=== PATIENT | female | born 1975 | race Caucasian/White ===

== ENCOUNTER 2020-05-03 16:22 | Outpatient (CLI) | payer OTHER, SELFPAY ==
--- NOTE | ~2020-05-03 | MM_ITS ---
EXAMINATION: MM screening [facility] BI w navneet HISTORY: Screening mammogram TECHNIQUE: Craniocaudal and mediolateral oblique 3-D tomosynthesis images were obtained and synthetic 2-D images were generated. CAD analysis was submitted and interpreted. COMPARISON: 04/18/2019, 04/15/2018, 04/13/2017 BREAST PARENCHYMAL COMPOSITION: The breasts are heterogeneously dense, which may obscure small masses . FINDINGS: There is no evidence of suspicious mass, calcification, or architectural distortion to sugg est malignancy in either breast. There has been no suspicious interval change. IMPRESSION: 1. No mammographic evidence of malignancy. 2. Recommend routine screening mammography in one year. BI-RADS Category 1: Negative Reviewed, dictated and finalized at location A.
== END 2020-05-03 16:23 | disposition home or self-care (01) ==
LOC: ANHIMG 16:25
PROVIDERS: PCP Family Medicine; Visit Provider Obstetrics & Gynecology
DX: Z12.31 Encounter for screening mammogram for malignant neoplasm of breast (principal)
CPT/HCPCS: 77063; 77067

== ENCOUNTER → 2020-09-12 16:30 | Outpatient (CLI) | payer OTHER, SELFPAY ==
--- NOTE | ~2020-09-12 | MR_ITS ---
EXAMINATION: MR knee RT wo con DATE: 09/12/2020 17:35 INDICATION: Right knee pain. TECHNIQUE: Magnetic resonance imaging (MRI) of the right knee was performed without intravenous contr ast. Sequences included axial PD-weighted FS FSE, coronal PD-weighted FSE and PD-weighted FS FSE, sag ittal PD-weighted FSE, and sagittal T2-weighted FS FSE. COMPARISON: Right knee radiographs 12/10/18 FINDINGS: Medial compartment: Medial meniscus is normal. There is shallow partial-thickness cartilage loss of tibial condyle and fe moral condyle, worst at the central articular surfaces. Lateral compartment: Lateral meniscus is normal. Femoral cartilage is normal. Tibial cartilage is normal. Patellofemoral compartment: There is cartilage surface irregularity of patella and trochlea. Ligaments and tendons: The anterior and posterior cruciate ligaments are normal. Medial collateral ligament and the lateral collateral ligament complex are intact. The patellar tendon is normal. Fluid: There is a small knee joint effusion. There are loose bodies in the knee joint measuring up to 7 mm. IMPRESSION: 1. Mild chondrosis of medial and patellofemoral compartments. 2. Small knee joint effusion with loose bodies. Reviewed, dictated and finalized at location A. IFIED ORTHOTIST PRACTICE MANAGER
== END ==
PROVIDERS: PCP Family Medicine; Visit Provider Physician Assistant Medical
DX: M25.461 Effusion, right knee (principal)
CPT/HCPCS: 73721

== ENCOUNTER 2023-07-15 15:53 | Outpatient (CLI) | payer OTHER, SELFPAY ==
--- NOTE | ~2023-07-15 | MM_ITS ---
EXAMINATION: MM screening [facility] BI w navneet HISTORY: Screening TECHNIQUE: Craniocaudal and mediolateral oblique 3-D tomosynthesis images were obtained and synthetic 2-D images were generated. CAD analysis was submitted and interpreted. COMPARISON: Comparison to multiple prior studies sequentially, with oldest reviewed study dated 04/05. BREAST PARENCHYMAL COMPOSITION: The breasts are heterogeneously dense, which may obscure small masses . FINDINGS: There is no evidence of suspicious mass, calcification, or architectural distortion to sugg est malignancy in either breast. There has been no suspicious interval change. IMPRESSION: 1. No mammographic evidence of malignancy. 2. Recommend routine screening mammography in one year. BI-RADS Category 1: Negative Reviewed, dictated and finalized at location A. END JAVA DEVELOPER
== END 2023-07-15 15:54 | disposition home or self-care (01) ==
LOC: ANHIMG 16:31
PROVIDERS: PCP Family Medicine; Visit Provider Obstetrics & Gynecology
DX: Z12.31 Encounter for screening mammogram for malignant neoplasm of breast (principal)
CPT/HCPCS: 77063; 77067

== ENCOUNTER 2023-09-17 07:56 | Day surgery (SDC) | payer OTHER, SELFPAY ==
[2023-08-26 15:05] VITALS: BMI 20.2
[2023-09-04 08:32] VITALS: BMI 20.4
[2023-09-17 08:42] VITALS: BP 117/76; PULSE 99; RESP 18; TEMP 37.1; O2SAT 99
[2023-09-17] MEDS: LACTATED RINGERS 1,000 ML 150 ML IV CONT (08:57)
--- NOTE | 2023-09-17 09:21 | PM.HPGS ---
History of Present Illness History of Present Illness Consent: Risks, benefits, and alternatives have been discussed and questions answered. Patient agrees to proceed with procedure. Chief complaint: Neoplasm Screening Narrative: Cookie De La Vega is a 48 year old female presents for screening colonoscopy. Patient's current weight appetite and bowel movements are normal. Patient denies abdominal pain. She has had no bleeding. Family history is significant that her mother had colon polyps. Review of Systems Review of Systems: Review of systems noncontributory. [facility] Past Medical History Medical History History of anal fissures (~04/2006) repair Left knee pain Family History Family History Grandparent Family history of malignant neoplasm Family history of type 2 diabetes mellitus Family history of congestive heart failure Social History Social History Smoking status: Never smoker Second hand tobacco smoke exposure: No Alcohol intake: never Substance use: never Substance use type: does not use Lack of Transportation: No Lack of Food: Never True Current Housing: I Have Housing Concerned About Future Housing: No Difficulty Paying Gas/Electric Bills: No Difficulty Paying for Meds: No Currently Unemployed: No Education: Master's Degree or Higher Difficulty w/ Childcare or Family Care: No Living arrangements: with family Spiritual care concerns: No Meds Home Medications and Allergies Home Medications Medication Instructions Recorded Confirmed Type sumatriptan succinate 100 mg tablet See Rx Instructions PO .COMPLEX #9 06/16/23 09/17/23 Rx tabs multivitamin with minerals-folic 1 tablet PO DAILY 09/04/23 09/17/23 History acid 200 mcg chewable tablet Allergies Allergy/AdvReac Type Severity Reaction Status Date / Time latex Allergy Unknown Blister Verified 09/17/23 08:40 Vital Signs Vital Signs - 24 hr 09/17/23 08:42 Temperature 98.7 F Pulse Rate 99 Respiratory Rate 18 Blood Pressure 117/76 Pulse Oximetry 99 Oxygen Delivery Room Air Exam Narrative: Physical exam reveals patient to be alert. Vital signs stable. HEENT exam is unremarkable. Patient is anicteric. Lungs are clear to auscultation and to percussion. Heart is without murmur or extra sounds. Abdomen sounds are present soft nontender with no organomegaly. Digital external rectal exam normal. Assessment and Plan Assessment and plan (1) Screening for colon cancer: Code(s): Z12.11 - Encounter for screening for malignant neoplasm of colon Status: Acute Assessment and Plan: Patient presents today for screening colonoscopy. She reports her mother may have had colon polyps in the past. Further recommendations may be given after endoscopy.
--- NOTE | 2023-09-17 09:22 | P.PNAN_ITS ---
Anes - Initial Pre Proc Eval Procedure: Operation Date: 09/17/23 10:00 Proposed Procedures p Screening Colonoscopy - Dl Andrea MD Date/Time: 09/17/23 09:22 Surgeon: Dl Andrea MD Pre Op Diagnosis: Neoplasm Screening Patient Data Age: 48 Gender: F Height: 1.63 m Weight: 52.6 kg Last Vital Signs Temp 37.1 C 09/17/23 08:42 Pulse 99 09/17/23 08:42 Resp 18 09/17/23 08:42 BP 117/76 09/17/23 08:42 Pulse Ox 99 09/17/23 08:42 O2 Del Method Room Air 09/17/23 08:42 Allergies Allergy/AdvReac Type Severity Reaction Status Date / Time latex Allergy Unknown Blister Verified 09/17/23 08:40 Home Medications Medication Instructions Recorded Confirmed Type sumatriptan succinate 100 mg tablet See Rx Instructions PO .COMPLEX #9 06/16/23 09/17/23 Rx tabs multivitamin with minerals-folic 1 tablet PO DAILY 09/04/23 09/17/23 History acid 200 mcg chewable tablet Patient hx anesthesia problems: none Family hx anesthesia problems: none Results Review: All pre-operative results and documents have been reviewed as part of the pre- operative evaluation. [facility] Past Medical History Medical History (Updated 09/17/23 @ 09:24 by Joey Motley MD) History of anal fissures (~04/2006) repair Left knee pain Thoracic outlet syndrome left side - 2001 [place] Surgical History Surgical History (Updated 09/17/23 @ 09:26 by Joey Motley MD) H/O resection of rib left first 2001, subclavian vein graft Family History Family History Grandparent Family history of malignant neoplasm Family history of type 2 diabetes mellitus Family history of congestive heart failure Social History Social History Smoking status: Never smoker Second hand tobacco smoke exposure: No Alcohol intake: never Substance use: never Substance use type: does not use Lack of Transportation: No Lack of Food: Never True Current Housing: I Have Housing Concerned About Future Housing: No Difficulty Paying Gas/Electric Bills: No Difficulty Paying for Meds: No Currently Unemployed: No Education: Master's Degree or Higher Difficulty w/ Childcare or Family Care: No Living arrangements: with family Spiritual care concerns: No Anes - Eval Final PreProcedure Day of Procedure 09/17/23 09:22 Patient weight: thin Heart: regular rate and rhythm Lungs: clear to auscultation Airway: Mallampati scale class 1 Neurological: alert and oriented Last oral intake: >/= 8 hours ASA classification: II Emergent: no Anesthetic plan: proceed Anesthesia type and monitoring: general GIVS and standard monitoring Results Review: All pre-operative results and documents have been reviewed as part of the pre- operative evaluation. Informed Consent: The patient's anesthetic plan and its attendant risks and benefits were discussed with the patient/family/POA. Questions were solicited and answers provided to the satisfaction of the patient/family/POA.
[2023-09-17] MEDS: SIMETHICONE ORAL SUSPENSION 20 MG/0.3 ML 30 ML BOTTLE 0.6 ML IRRIGATION (10:02)
[2023-09-17 10:09] VITALS: BP 83/51; PULSE 77; RESP 18; O2SAT 99
--- NOTE | 2023-09-17 10:17 | WPDANESPN ---
Anes - Prog Note Post-Op Date/Time: 09/17/23 10:17 Cardiovascular status: normal Respiratory status: normal Airway patency: baseline Mental status: baseline Post-Op hydration status: normal Vital Signs: Last Vital Signs Temp 37.1 C 09/17/23 08:42 Pulse 99 09/17/23 08:42 Resp 18 09/17/23 08:42 BP 117/76 09/17/23 08:42 Pulse Ox 99 09/17/23 08:42 O2 Del Method Room Air 09/17/23 08:42 Pain Score (VAS): 0/10 Patient Feedback: Patient satisfied with anesthetic care.
[2023-09-17 10:19] VITALS: BP 89/54; PULSE 66; RESP 18; O2SAT 99
[2023-09-17 10:29] VITALS: BP 106/69; PULSE 70; RESP 18; O2SAT 99
== END 2023-09-17 10:37 | disposition home or self-care (01) ==
PROVIDERS: PCP Family Medicine; Visit Provider Internal Medicine Gastroenterology
PROC: 0DJD8ZZ Inspection of Lower Intestinal Tract, Via Natural or Artificial Opening Endoscopic (ICD-10-PCS; CPT 45378; principal; 2023-09-17 10:00)
DX: Z12.11 Encounter for screening for malignant neoplasm of colon (principal); K64.8 Other hemorrhoids; Z83.718 Family history of other colon polyps
CPT/HCPCS: 45378

== ENCOUNTER 2024-04-21 15:07 | Outpatient (CLI) | payer OTHER, SELFPAY ==
--- NOTE | ~2024-04-21 | US_ITS ---
EXAMINATION: US thyroid DATE: 04/21/2024 15:26 INDICATION: Palpable thyroid nodule. TECHNIQUE: Multiple ultrasound images of the thyroid were obtained. COMPARISON: None. FINDINGS: The right thyroid lobe measures 4.4 x 1.5 x 1.4 cm. The left thyroid lobe measures 5.1 x 1.4 x 1.6 c m. In the left thyroid lobe, there is a 12 mm mixed cystic and solid, hypoechoic, wider than tall no dule with smooth margin without echogenic foci (TI-RADS TR3). In the left thyroid lobe, there are two 3 mm nodules. IMPRESSION: 1. Small thyroid nodules, likely not clinically significant. No follow-up is needed. Reviewed, dictated and finalized at location A. IMPRESSION: 1. Small thyroid nodules, likely not clinically significant. No follow-up is ne eded.
== END 2024-04-21 15:08 ==
PROVIDERS: PCP Physician Assistant Medical; Visit Provider Obstetrics & Gynecology
DX: E04.2 Nontoxic multinodular goiter (principal)
CPT/HCPCS: 76536

== ENCOUNTER 2024-05-14 09:39 | Emergency (ER) | payer OTHER, SELFPAY ==
--- NOTE | 2024-05-14 09:47 | ED.URI ---
HPI - URI/Sore Throat General Chief Complaint: Upper Respiratory Infection Stated Complaint: sore throat,nasal congestion,loss of voice Time Seen by Provider: 05/14/24 09:47 Source: patient Mode of arrival: ambulatory Limitations: no limitations History of Present Illness HPI Narrative: [age] year old female presents with complaint of nasal congestion, sinus pressure, postnasal drainage, hoarse voice for 3 days. Afebrile. Not taking any [id number] medications to treat her symptoms. Denies cough. Denies nausea vomiting diarrhea. All Systems reviewed and negative except as noted above. Related Data Home Medications Medication Instructions Recorded Confirmed multivitamin with minerals-folic 1 tablet PO DAILY 09/04/23 05/14/24 acid 200 mcg chewable tablet Allergies Allergy/AdvReac Type Severity Reaction Status Date / Time latex Allergy Unknown Blister Verified 05/14/24 09:46 Review of Systems Review of Systems: CONSTITUTIONAL: Denies fever, chills, or sweats. EYES: Denies visual changes, redness, or discharge. ENT: reports rhinorrhea, congestion, sinus pressure, postnasal drainage. Denies sore throat, or otalgia. CARDIOVASCULAR: Denies chest pain, palpitations, or edema. RESPIRATORY: Denies cough or dyspnea. GASTROINTESTINAL: Denies abdominal pain, nausea, vomiting, or diarrhea. GENITOURINARY: Denies dysuria or hematuria. SKIN: Denies rash or itching. MUSCULOSKELETAL: Denies back pain, joint pain, or myalgia. NEUROLOGIC: Denies headache, numbness, or weakness. PSYCHIATRIC: Denies anxiety or depression. All other systems reviewed are negative, except as documented in HPI. COUNT INCLUDES THE [facility] Past Medical History Medical History Counseling on health promotion and disease prevention Encounter for medication management History of anal fissures (~04/2006) repair Left knee pain Sjogren's syndrome without extraglandular involvement Thoracic outlet syndrome left side - 2001 [place] Surgical History Surgical History H/O resection of rib left first 2001, subclavian vein graft Family History Family History Grandparent Family history of malignant neoplasm Family history of type 2 diabetes mellitus Family history of congestive heart failure Social History Social History Smoking status: Never smoker Second hand tobacco smoke exposure: No Alcohol intake: never Substance use: never Substance use type: does not use Lack of Transportation: No Lack of Food: Never True Current Housing: I Have Housing Concerned About Future Housing: No Difficulty Paying Gas/Electric Bills: No Difficulty Paying for Meds: No Currently Unemployed: No Education: Master's Degree or Higher Difficulty w/ Childcare or Family Care: No Living arrangements: with family Spiritual care concerns: No Comments At time of signature, agree with nursing past medical, surgical, social and family history. There is no relevant family history pertinent to the presenting complaint. Exam Narrative: GENERAL: This is a well-nourished, well-developed patient, in no apparent distress. HEAD: normocephalic, atraumatic. EYES: PERRL. Sclera clear/white. Vision is grossly intact. EARS: External ears normal, auditory canals clear and without drainage, TMs normal without perforation. Hearing grossly intact. NOSE: External nose normal with clear postnasal drainage without significant erythema or swelling to bilateral nares. THROAT: Mucous membranes moist, Clear postnasal drainage. No significant erythema or swelling NECK: Neck supple, non-tender without lymphadenopathy, masses or thyromegaly. CARDIOVASCULAR: Regular rate and rhythm without murmurs, gallops, or rubs. RESPIRATORY: Clear to auscultation. Breath
[2024-05-14 09:50] VITALS: BP 103/44; PULSE 87; RESP 16; TEMP 37.1; O2SAT 99
== END 2024-05-14 10:14 | disposition home or self-care (01) ==
PROVIDERS: Emergency Provider Nurse Practitioner Family; PCP Physician Assistant Medical
DX: J01.90 Acute sinusitis, unspecified (principal); M35.00 Sjogren syndrome, unspecified
CPT/HCPCS: 99211; G0463

== ENCOUNTER 2024-08-10 15:37 | Outpatient (CLI) | payer OTHER, SELFPAY ==
--- NOTE | ~2024-08-10 | MM_ITS ---
EXAMINATION: MM screening [facility] BI w navneet HISTORY: Screening TECHNIQUE: Craniocaudal and mediolateral oblique 3-D tomosynthesis images were obtained and synthetic 2-D images were generated. CAD analysis was submitted and interpreted. COMPARISON: Comparison to multiple prior studies sequentially, with oldest reviewed study dated 09/2015. BREAST PARENCHYMAL COMPOSITION: Dense: The breasts are heterogeneously dense, which may obscure small masses FINDINGS: There is no evidence of suspicious mass, calcification, or architectural distortion to sugg est malignancy in either breast. There has been no suspicious interval change. IMPRESSION: 1. No mammographic evidence of malignancy. 2. Recommend routine screening mammography in one year. BI-RADS Category 1: Negative Reviewed, dictated and finalized at location B. NSED BONDSMAN
== END 2024-08-10 15:38 | disposition home or self-care (01) ==
LOC: ANHIMG 15:50
PROVIDERS: PCP Physician Assistant Medical; Visit Provider Obstetrics & Gynecology
DX: Z12.31 Encounter for screening mammogram for malignant neoplasm of breast (principal)
CPT/HCPCS: 77063; 77067

== ENCOUNTER 2025-06-19 13:41 | Outpatient (CLI) | payer OTHER, SELFPAY ==
--- NOTE | ~2025-06-19 | US_ITS ---
EXAMINATION: US thyroid DATE: 06/19/2025 14:22 INDICATION: Thyroid nodules. TECHNIQUE: Multiple ultrasound images of the thyroid were obtained. COMPARISON: Ultrasound 04/21/2024 FINDINGS: The right thyroid lobe measures 4.1 x 1.4 x 1.2 cm. The left thyroid lobe measures 5.2 x 1.4 x 1.5 cm. In the left thyroid lobe, there is a 7 mm mixed cystic and solid, hypoechoic, wider than tall nodule with smooth margin without echogenic foci (TI-RADS TR3). In the left thyroid lobe, there is a 14 mm mixed cystic and solid, hypoechoic, wider than tall nodule with smooth margin without echogenic foci (TR3). There is a 2 mm nodule in right thyroid lobe. IMPRESSION: 1. Small thyroid nodules, likely not clinically significant. No follow-up is needed. Reviewed, dictated and finalized at location E. IMPRESSION: 1. Small thyroid nodules, likely not clinically significant. No follow-up is ne eded.
== END 2025-06-19 13:42 | disposition home or self-care (01) ==
LOC: MICIMG 13:42
PROVIDERS: PCP Family Medicine; Visit Provider Obstetrics & Gynecology
DX: E04.2 Nontoxic multinodular goiter (principal)
CPT/HCPCS: 76536

== ENCOUNTER 2025-07-24 10:53 | Outpatient (CLI) | payer OTHER, SELFPAY | END 2025-07-24 10:54 | disposition home or self-care (01) | LOC: ANHAUDIO 10:54 | PROVIDERS: PCP Family Medicine; Visit Provider Otolaryngology Otolaryngology/Facial Plastic Surgery | DX: H93.13 Tinnitus, bilateral (principal); R42 Dizziness and giddiness; Z82.2 Family history of deafness and hearing loss; H91.93 Unspecified hearing loss, bilateral | CPT/HCPCS: 92557; 92567 ==

== ENCOUNTER 2025-08-15 15:55 | Outpatient (CLI) | payer OTHER, SELFPAY ==
--- NOTE | ~2025-08-15 | MM_ITS ---
EXAMINATION: MM screening [facility] BI w navneet HISTORY: Screening. TECHNIQUE: Craniocaudal and mediolateral oblique 3-D tomosynthesis images were obtained and synthetic 2-D images were generated. CAD analysis was submitted and interpreted. COMPARISON: 2023, 2022, and 2021. BREAST PARENCHYMAL COMPOSITION: Dense: The breasts are heterogeneously dense FINDINGS: No suspicious masses are seen. There are no suspicious calcifications. No unexplained architectural distortion is seen. There are no skin or nipple abnormalities identified. There is no adenopathy seen on the images submitted. IMPRESSION: No mammographic evidence to suggest malignancy is seen. The patient may return to screening mammography as per ACR guidelines. BI-RADS 1 - Negative. Reviewed, dictated and finalized at location C. DENTIAL INSURANCE INSPECTOR
--- OUTSIDE RECORDS SUMMARY | 2025-08-15 18:41 | XMS_ITS | Clinical Summary ---
Author Organization [facility] Address [address] [place] [address] Care Team Providers Care Efficiency Expert Name Role Phone Tia Mclean TOOL HARDENER-TOILET AND LAUNDRY SOAP SUPERVISOR Primary Care Provider Source Comments [facility],non-owned Affiliates and Associated Physician Practices is amultiple site organization consisting of ambulatory clinics and hospital sitesin [place], [place], [place] and [place]. This disclosure is being madepursuant to the Care Everywhere program and may not contain all information available regarding this patient. Last updated 18.[facility] [employer] Allergies Active Allergy Reactions Criticality Noted Date Comments Latex Rash Medium 09/08/2016 Medications * Be aware that medications may not be up to date on this document. Alwaysverify current medications with the patient. SUMAtriptan Succinate (IMITREX PO) Active ipratropium (ATROVENT) 0.06 % nasal sprayIndications:Acu te nasopharyngitis (common cold) [place] 2 Sprays into each nostril 3 times daily as needed 1 Bottle 7 Active Family History Medical History Relation Name Comments Hyperlipidemia Father Diabetes Maternal Grandmother Arthritis Mother Relation Name Status Comments Father Alive Maternal Grandmother Mother Alive Social History Tobacco Use Types Packs/Day Years Used Date Smoking Tobacco: Never Tobacco Cessation:Counseling Given: No Alcohol Use Standard Drinks/Week Comments No 0 (1 standard drink = 0.6 oz pur e alcohol) Comments No Sex and Gender Information Value Date Recorded Sex Assigned at Not on file Legal Sex Female 11:59 AM MICROBIOLOGY PROFESSOR Gender Identity Not on file Sexual Orientation Not on file Last Filed Vital Signs Vital Sign Reading Time Taken Comments Blood Pressure 122/80 09/08/2016 4:56 PM MICROBIOLOGY PROFESSOR Pulse 74 09/08/2016 4:56 PM MICROBIOLOGY PROFESSOR Temperature 37.1 C (98.8 F) 09/08/2016 4:56 PM MICROBIOLOGY PROFESSOR Respiratory Rate 20 09/08/2016 4:56 PM MICROBIOLOGY PROFESSOR Oxygen Saturation 99% 09/08/2016 4:56 PM MICROBIOLOGY PROFESSOR Inhaled Oxygen Concentration - - Weight 54.4 kg (120 lb) 09/08/2016 4:56 PM MICROBIOLOGY PROFESSOR Height 162.6 cm (5' 4) 09/08/2016 4:56 PM MICROBIOLOGY PROFESSOR Body Mass Index 20.6 09/08/2016 4:56 PM MICROBIOLOGY PROFESSOR Plan of Treatment Health Maintenance Due Date Last Done Comments COLOGUARD (AGES 45-75) - COL ON CA SCREENING 1974 COLON MONITORING 1974 COLONOSCOPY - COLON CA SCREENING 1974 CT COLONOGRAPHY - COLON CA SCREENING 1974 Colorectal Cancer Screening 1974 FIT - COLON CA SCREENING 1974 FLEX SIG - COLON CA SCREENING 1974 LIPID TESTING 1974 MAMMOGRAM 1974 HIV SCREENING 1989 HEPATITIS C SCREENING 03/09/1992 DTAP/TDAP/TD VACCINES (1 - Tdap) 1993 HEPATITIS B VACCINE (1 of 3 - 19+ 3-dose series) 1993 PNEUMOCOCCAL VACCINE 50+ (1 of 1 - PCV) 2024 ZOSTER VACCINE (1 of 2) 2024 DEPRESSION SCREENING 09/07/2024 COVID-19 VACCINE (1 - 2024-2 6 season) 2025 INFLUENZA VACCINE (#1) 2025 HIB VACCINE Aged Out No longer eligi ble based on patient's age to complete this topic HPV VACCINE Aged Out No longer eligi ble based on patient's age to complete this topic MENINGOCOCCAL (Group B) VACC INE SHARED DECISION-MAKING Aged Out No longer eligibl e based on patient's age to complete this topic MENINGOCOCCAL GROUPS A/C/Y/W VACCINE Aged Out No longer eligible b ased on patient's age to complete this topic Insurance [employer] Care Teams Efficiency Expert Relationship Specialty Start Date End Date Tia Mclean, TOOL HARDENER-TOILET AND LAUNDRY SOAP SUPERVISOR [address] [phone] PCP - General Nurse Practitioner 09/08/16
== END 2025-08-15 15:56 | disposition home or self-care (01) ==
LOC: ANHFOHIMG 15:56
PROVIDERS: PCP Physician Assistant Medical; Visit Provider Obstetrics & Gynecology
DX: Z12.31 Encounter for screening mammogram for malignant neoplasm of breast (principal)
CPT/HCPCS: 77063; 77067

== ENCOUNTER 2025-08-24 10:28 | Outpatient (CLI) | payer OTHER, SELFPAY ==
--- NOTE | ~2025-08-24 | US_ITS ---
EXAMINATION: US FNA w image guidance DATE: 08/24/2025 11:35 INDICATION: Nontoxic single thyroid nodule TECHNIQUE: A time-out was performed to verify the patient's name, date of , and procedure to be performed. The procedure and its benefits and risks were discussed with the patient. Risks specifically discussed included bleeding and infection. The patient understood the risks and agreed to proceed. The neck was prepped and draped in the usual sterile manner. 4 mL 1% lidocaine was used for local anesthesia. 4 passes were made with a 25G needle into the lesion. Appropriate needle location was documented with continuous sonographic guidance. A sterile bandage was applied. There were no immediate complications. FINDINGS: Grayscale ultrasound images demonstrate biopsy needles advanced into and approximately 8 mm solid hypoechoic nodule at the junction of the left thyroid lobe and isthmus. The previously seen cystic components have resolved.. IMPRESSION: 1. Successful ultrasound-guided fine needle aspiration of an 8 mm solid hyperechoic left thyroid nodule. Reviewed, dictated and finalized at location A. EHAND IMPRESSION: 1. Successful ultrasound-guided fine needle aspiration of an 8 mm solid hypere choic left thyroid nodule.
--- NOTE | 2025-08-24 11:27 | CY_PTH ---
PATIENT: Cookie De La Vega LOC: [facility] U#:[id number] AGE/SX: 50/F ROOM: RE08/24/[address]: Migue Mcnair MD : 1975 BED: DIS: 08/24/2025 SPEC #: [id number] RECD: 08/24/25 11:29 STATUS: RENAN JENKINS #: [id number] MIRANDA: 08/24/25 11:[address]: Migue Mcnair DEPT: [facility] Cytology RECD BY: hCasity Gustafson ENTERED: 08/24/25 11:30 SP TYPE: Cytology OTHR DR: Leslie Melvin, PAC Tissues: A - FNA Thyroid Procedures: Hematoxylin and Eosin Stain Cell Block Fine Needle Aspiration Evaluation Fine Needle Aspiration Pathologist
== END 2025-08-24 10:29 | disposition home or self-care (01) ==
LOC: ANHIMG 10:29
PROVIDERS: PCP Physician Assistant Medical; Visit Provider Otolaryngology Otolaryngology/Facial Plastic Surgery
DX: E04.2 Nontoxic multinodular goiter (principal)
CPT/HCPCS: 10005; 88172; 88173; 88305